=== PATIENT | female | born 1975 | race Hispanic/Latino ===

== ENCOUNTER 2021-01-22 12:25 | Emergency (ER) | payer OTHER, SELFPAY ==
--- NOTE | ~2021-01-22 | XR_ITS ---
XR chest 1V portable DATE: 01/22/2021 13:29 INDICATION: Shortness of breath TECHNIQUE: Portable AP chest on January 22, 2021 at 1331 hours COMPARISON: 07/22/2015 PA and lateral chest FINDINGS: Normal heart size. No hilar or mediastinal enlargement. No pulmonary infiltrate or consolid ation, pleural effusion or pulmonary vascular congestion or pneumothorax. IMPRESSION: No active cardiopulmonary disease Reviewed, dictated and finalized at [facility] [employer]
--- NOTE | ~2021-01-22 | CT_ITS ---
EXAMINATION: CTA chest PE protocol DATE: 01/22/2021 14:30 INDICATION: Shortness of breath. Elevated d-dimer. Covid-positive in November. TECHNIQUE: Computed tomography angiography (CTA) of the chest was performed with 100 mL Omnipaque-350 intravenous contrast timed to evaluate the pulmonary arteries. Coronal maximum intensity projection 3D-reconstructions were created by the technologist. Automated exposure control and iterative reconst ruction technique were employed. Exam dose: 164.21 mGy-cm total exam DLP. COMPARISON: January 22, 2021 portable AP chest FINDINGS: There is diagnostic contrast enhancement of the pulmonary arteries and no evidence of pulmo nary embolism. No thoracic aortic aneurysm or dissection. Normal heart size. No pericardial or pleural effusion. There are patchy primarily peripheral right upper and lower lobe and left lower lobe pulmonary ground glass infiltrates. 5 mm left lower lobe pulmonary nodule (series 4 image 78) Normal morphology of the adrenal glands. Included upper abdominal structures are unremarkable. No suspicious osteolytic or osteoblastic lesions. IMPRESSION: No evidence of pulmonary embolism Patchy bilateral predominantly peripheral groundglass pulmonary infiltrates and 3.5 mm left lower lob e nodular density; these are likely residual infiltrates from reported Covid infection. [id number] month (depending upon risk factors) CT follow-up is recommended considering the left low er lobe pulmonary nodule. Reviewed, dictated and finalized at [facility] Reviewed, dictated and finalized at [facility]. [employer] IMPRESSION: No evidence of pulmonary embolism Patchy bilateral predominantly peripheral groundglass pulmonary infiltrates and 3.5 mm left lower lobe nodular density; these are likely residual infiltrates from reported Covid infection. [id number] month (depending upon risk factors) CT follow-up is recommended co nsidering the left lower lobe pulmonary nodule.
[2021-01-22 12:30] VITALS: BP 147/86; PULSE 95; RESP 20; O2SAT 100
--- NOTE | 2021-01-22 12:34 | ECG_ITS ---
Measurements Intervals [place] Rate: 90 P: 78 PA: 146 QRS: -83 QRSD: 101 T: 72 QT: 352 QTc: 431 Interpretive Statements SINUS RHYTHM INCOMPLETE RIGHT BUNDLE BRANCH BLOCK LEFT ANTERIOR FASCICULAR BLOCK BASELINE ARTIFACT- II, III ABNORMAL ECG Electronically Signed On 01-22-2021 15:51:07 GAMING [employer]OST by Ron Rodriguez D.O.
[2021-01-22] MEDS: ALBUTEROL SULFATE NEB 2.5 MG/0.5 ML INH 5 MG INHALATION (13:11)
[2021-01-22 13:12] VITALS: PULSE 78; RESP 14
[2021-01-22] MEDS: IPRATROPIUM BR 0.02% INH SOLN 0.5 MG/2.5 ML VIAL INHALATION (13:12)
[2021-01-22 13:16] LABS: Basophils Absolute Auto 0.1 K/mm3 (0.0-0.1); Basophils Percent Auto 0.7 % (0.2-1.2); Eosinophils Absolute Auto 0.2 K/mm3 (0-0.3); Eosinophils Percent Auto 1.9 % (0-4.4); Hematocrit 40.3 % (37.0-47.0); Hemoglobin 13.7 g/dL (12.0-15.0); Immature Granulocyte Absolute 0.07 K/mm3 (0.00-0.031); Immature Granulocyte Percent A 0.7 % (0-0.5); Lymphocytes Absolute Auto 1.62 K/mm3 (0.9-3.2); Mean Corpuscular Hemoglobin 29.8 pg (26-34); Mean Corpuscular Volume 87.6 fl (80-100); Mean Platelet Volume 10.6 fl (7.4-10.4); Monocytes Absolute Auto 0.5 K/mm3 (0.1-0.6); Monocytes Percent Auto 5.1 % (2.6-8.5); Neutrophils Absolute Auto 7.7 K/mm3 (1.3-6.7); Neutrophils Percent Auto 75.6 % (45.5-73.1); Platelet Count Result 267 k/mm3 (150-375); Red Cell Distribution Width 14.8 % (11.5-14.5); White Blood Count 10.1 K/mm3 (4.5-10.0)
[2021-01-22 13:18] VITALS: PULSE 89; RESP 14
[2021-01-22 13:29] LABS: Anion Gap 9 mmol/L (8-16); Blood Urea Nitrogen 11 mg/dL (7-17); Calcium 9.4 mg/dL (8.4-10.2); Carbon Dioxide 24 mmol/L (22-30); Chloride 109 mmol/L (98-107); D Dimer 1.66 ug/mL (<0.48); Estimated Glomerular Filt Rate > 60; Glucose 82 mg/dL (65-105); Sodium 142 mmol/L (137-145)
[2021-01-22 13:45] LABS: Troponin I < 0.012 ng/mL (0.000-0.034)
--- NOTE | 2021-01-22 13:47 | ED.GENADULT ---
HPI - General Adult General Chief complaint: Upper Respiratory Infection Stated complaint: chest pain Time Seen by Provider: 01/22/21 12:32 History of Present Illness HPI narrative: Patient is a 45-year-old female who presents ER with shortness of breath. Was diagnosed with COVID-19 last month. She has recovered. Unfortunately she has had persistent shortness of breath since then. If she goes to the grocery store she has to sit down to catch her breath. She has intermittent chest pain but finds it is typically worse with coughing. No fevers or chills or sweats. She has found no alleviating factors. Does not feel short of breath at rest. She does have a sense of weakness/fatigue. Related Data Allergies Allergy/AdvReac Type Severity Reaction Status Date / Time No Known Allergies Allergy Verified 01/22/21 12:38 Review of Systems Review of Systems: All systems reviewed & are unremarkable except as noted in HPI and below Constitutional: Constitutional: Denies chills, Reports fatigue, Denies fever(s) and Reports weakness ENT: Denies nasal congestion and Denies sore throat Cardiovascular: Cardiovascular: Reports chest pain, Denies rapid heart rate and Denies radiating jaw, neck or arm pain Respiratory: Respiratory: Reports cough, Reports dyspnea and Denies wheezing Gastrointestinal: Gastrointestinal: Denies abdominal pain, Denies nausea and Denies vomiting PMFSH Past Medical History Medical History (Updated 01/22/21 @ 15:22 by Bryant Dewey MD) Healthy female adult Surgical History Surgical History (Updated 01/22/21 @ 13:50 by Bryant Dewey MD) History of section Social History Social History (Updated 01/22/21 @ 13:50 by Bryant Dewey MD) Smoking status: Never smoker Exam Narrative: Exam Narrative: GENERAL: Well-appearing, well-nourished, and in no acute distress. HEAD: Normocephalic, atraumatic. CHEST: Clear to auscultation. No respiratory distress. HEART: Regular rate and rhythm. Normal peripheral pulses. ABDOMEN: Soft, nontender, nondistended. EXTREMITIES: Normal range of motion. No edema. SKIN: Warm, dry, no rash. NEURO: Alert and oriented x3. PSYCH: Normal mood and affect. Course Course Emergency Course: Unremarkable evaluation. Patient likely just experiencing persistent Covid symptoms without infection. Should improve on her own. No PE. Discussed CT findings and need for repeat imaging in the next 6 months to year. Vital Signs Vital signs: Vital Signs Pulse Rate 95 01/22/21 12:30 Respiratory Rate 20 01/22/21 12:30 Blood Pressure 147/86 H 01/22/21 12:30 Pulse Oximetry 100 01/22/21 12:30 Pulse Rate 81 01/22/21 15:12 Respiratory Rate 20 01/22/21 15:12 Blood Pressure 118/69 01/22/21 15:12 Pulse Oximetry 99 01/22/21 15:12 Medical Decision Making Vital Signs Vital Signs: Vital Signs Pulse Rate 95 01/22/21 12:30 Respiratory Rate 20 01/22/21 12:30 Blood Pressure 147/86 H 01/22/21 12:30 Pulse Oximetry 100 01/22/21 12:30 Pulse Rate 81 01/22/21 15:12 Respiratory Rate 20 01/22/21 15:12 Blood Pressure 118/69 01/22/21 15:12 Pulse Oximetry 99 01/22/21 15:12 Lab Data Result diagrams: 01/22/21 13:09 01/22/21 13:09 Labs: Lab Results 01/22/21 01/22/21 01/22/21 Range/Units 13:09 13:09 13:09 WBC 10.1 H (4.5-10.0) K/mm3 RBC 4.60 (4.2-5.4) M/mm3 Hgb 13.7 (12.0-15.0) g/dL Hct 40.3 (37.0-47.0) % MCV 87.6 (80-100) fl MCH 29.8 (26-34) pg MCHC 34.0 (32-36) g/dl RDW 14.8 H (11.5-14.5) % Plt Count 267 (150-375) k/mm3 MPV 10.6 H (7.4-10.4) fl Immature Gran % (Auto) 0.7 H (0-0.5) % Neut % (Auto) 75.6 H (45.5-73.1) % Lymph % (Auto) 16.0 L (18.3-44.2) % [place]clean % (Auto) 5.1 (2.6-8.5) % Eos % (Auto) 1.9 (0-4.4) % Baso % (Auto) 0.7 (0.2-1.2) % Lymph # (Auto) 1.62 (0.9-3.2) K/mm3 Mclean # (Auto) 0.5
[2021-01-22 13:49] LABS: Potassium 3.9 mmol/L (3.4-5.0)
[2021-01-22 14:33] VITALS: BP 127/72; PULSE 96; RESP 20; O2SAT 100
[2021-01-22 15:12] VITALS: BP 118/69; PULSE 81; RESP 20; O2SAT 99
[2021-01-22 16:06] VITALS: BP 118/69; PULSE 88; RESP 20; O2SAT 99
== END 2021-01-22 16:10 | disposition home or self-care (01) ==
PROVIDERS: Emergency Provider Emergency Medicine
DX: R06.00 Dyspnea, unspecified (principal); R91.1 Solitary pulmonary nodule; I45.2 Bifascicular block; Z86.16 Personal history of COVID-19
CPT/HCPCS: 36415; 71045; 71275; 80048; 81025; 84484; 85025; 85380; 93005; 94640; 99284; Q9967